=== PATIENT | male | born 2000 | race Caucasian/White ===

== ENCOUNTER 2020-12-11 10:49 | Emergency (ER) | payer BC, SELFPAY ==
--- NOTE | 2020-12-11 11:34 | ULT ---
EXAM: Right upper extremity venous ultrasound HISTORY: Right upper extremity pain and edema COMPARISON: None TECHNIQUE: Multiplanar grayscale and color Doppler images were obtained in a right upper extremity ve nous ultrasound. Spectral analysis of the Doppler waveforms were performed. FINDINGS: The internal jugular vein demonstrates normal compression and flow without evidence of thrombus. The subclavian vein demonstrates normal flow and augmentation without evidence of thrombus. The axillary and brachial veins demonstrate normal compression, flow, and augmentation without eviden ce of thrombus. The venous structures distal to the elbow are patent without thrombus. The cephalic and basilic veins are patent. IMPRESSION: No evidence of DVT.
--- NOTE | 2020-12-11 12:04 | ULT ---
Right upper extremity arterial Doppler ultrasound: 12/11/2020 COMPARISON: None HISTORY: 20-year-old male with finger tingling and arm pain TECHNIQUE: Multiplanar grayscale sonographic imaging of the arterial structures of the right upper ex tremity obtained with Doppler interrogation including color flow and spectral analysis FINDINGS: The right common carotid artery, subclavian artery, axillary artery, brachial artery, radia l artery, and ulnar artery are patent with normal triphasic waveforms. IMPRESSION: Unremarkable arterial Doppler ultrasound of the right upper extremity.
== END 2020-12-11 12:57 | disposition home or self-care (01) ==
LOC: ERS 10:49
DX: M77.8 Other enthesopathies, not elsewhere classified (principal); F17.200 Nicotine dependence, unspecified, uncomplicated
CPT/HCPCS: 93923